=== PATIENT | female | born 1995 | race Caucasian/White ===

== ENCOUNTER 2016-11-20 22:20 | Emergency (ER) ==
[~2016-11-20] VITALS: Ht 170.2 cm; Wt 76.6 kg
[2016-11-20 22:22] VITALS: BP 106/67; PULSE 87; TEMP 36.6; O2SAT 99; Ht 170.2 cm; Wt 76.6 kg
== END 2016-11-20 22:29 | disposition left against medical advice (07) ==
LOC: C.EDB 22:21 → C.ED 22:29
DX: R20.2 Paresthesia of skin (principal)